=== PATIENT | female | born 1985 | race African-American/Black ===

== ENCOUNTER 2020-04-15 11:06 | Emergency (ER) | payer OTHER ==
[~2020-04-15] VITALS: Ht 172.7 cm; Wt 65.8 kg
[2020-04-15 11:14] VITALS: BP 119/77
[2020-04-15] MEDS ORDERED: KETOROLAC TROMETH 60MG/2ML VIAL IM ONE (13:15)
== END 2020-04-15 13:45 | disposition home or self-care (01) ==
LOC: ER 11:06
DX: S39.012A Strain of muscle, fascia and tendon of lower back, initial encounter (principal); W22.8XXA Striking against or struck by other objects, initial encounter; Y93.89 Activity, other specified; Y92.89 Other specified places as the place of occurrence of the external cause; Y99.8 Other external cause status
CPT/HCPCS: 72100; 96372; 99283; J1885

== ENCOUNTER 2021-07-20 22:29 | Emergency (ER) | payer OTHER ==
[~2021-07-20] VITALS: Ht 180.3 cm; Wt 58.1 kg
[2021-07-20 23:35] VITALS: BP 105/71
[2021-07-21] MEDS ORDERED: ACETAMINOPHEN 325 MG TAB PO ONE
== END 2021-07-21 00:15 | disposition home or self-care (01) ==
LOC: ER 22:29
DX: Z48.01 Encounter for change or removal of surgical wound dressing (principal); Z85.3 Personal history of malignant neoplasm of breast